=== PATIENT | male | born 1965 | race Caucasian/White ===

== ENCOUNTER 2021-08-02 20:16 | Emergency (ER) | payer OTHER ==
[2021-08-02 20:50] VITALS: BP 148/99; PULSE 86; RESP 18; TEMP 97.7
--- NOTE | 2021-08-02 22:08 | US ---
EXAMINATION TYPE: US extremity nonvascular ltd LT DATE OF EXAM: 08/02/2021 COMPARISON: NONE CLINICAL HISTORY: Left calf pain/injury. Left calf pain/injury. *No [facility] specialty, limited exam. Scanned patient's area of concern, left medial calf at mid level. Isoechoic area with hypoechoic periphery seen at patient's area of pain, ??normal tissue versus other . This area measures 0.5 x 0.6 x 0.5 cm IMPRESSION: Nonspecific soft tissue nodularity measuring up to 0.6 cm within the myofascial planes. This can be further evaluated with MRI of the lower extremity with IV contrast.
--- NOTE | 2021-08-02 23:39 | ED ---
Lower Extremity Injury HPI - General Chief Complaint: Extremity Injury, Lower Stated Complaint: IHS-L leg injury Time Seen by Provider: 08/02/21 23:18 Source: patient Mode of arrival: ambulatory Limitations: no limitations - History of Present Illness Initial Comments: 55-year-old male patient presents the emergency department today for evaluation of left calf pain. Patient states he was pushing a 700 pound pain at work when he developed pain in his left calf. States it is sharp in nature and worsens with walking. Denies swelling to the calf. Denies any skin color changes. Denies any knee pain. Denies numbness or tingling to the leg or foot. Denies taking anything for pain. Denies any other injuries or concerns. - Related Data Previous Rx's Medication Instructions Recorded Cyclobenzaprine [Flexeril] 10 mg PO TID #15 tab 08/02/21 Allergies Allergy/AdvReac Type Severity Reaction Status Date / Time No Known Allergies Allergy Verified 08/02/21 20:50 Review of Systems ROS Statement: Those systems with pertinent positive or pertinent negative responses have been documented in the HPI. ROS Other: All systems not noted in ROS Statement are negative. Past Medical History Past Medical History: No Reported History History of Any Multi-Drug Resistant Organisms: None Reported Past Surgical History: Orthopedic Surgery Additional Past Surgical History / Comment(s): Knee replacment bilateral. Past Psychological History: No Psychological Hx Reported Smoking Status: Current every day smoker Past Alcohol Use History: Occasional Past Drug Use History: None Reported General Exam Limitations: no limitations General appearance: alert, in no apparent distress, other (This is a well developed, well nourished adult male patient in no acute distress.) Respiratory exam: Present: normal lung sounds bilaterally. Absent: respiratory distress, wheezes, rales, rhonchi, stridor Cardiovascular Exam: Present: regular rate, normal rhythm, normal heart sounds. Absent: systolic murmur, diastolic murmur, rubs, gallop, clicks Extremities exam: Present: normal inspection, full ROM, tenderness (Left posterior calf), normal capillary refill, other (Skin to the left leg is pink, warm, and dry. Cap refill less than 3 seconds. Pedal and posttibial pulses 2+. There is left calf tenderness. Negative Doherty test.). Absent: pedal edema, joint swelling, calf tenderness Neurological exam: Present: alert, oriented X3, CN II-XII intact Psychiatric exam: Present: normal affect, normal mood Skin exam: Present: warm, dry, intact, normal color. Absent: rash Course Vital Signs 08/02/21 20:47 Temperature 97.7 F Pulse Rate 86 Respiratory 18 Rate Blood Pressure 148/99 O2 Sat by Pulse 96 Oximetry Medical Decision Making - Medical Decision Making 55-year-old male patient presents for evaluation of left calf pain after an injury at work. Physical examination did reveal tenderness over the calf. Skin appeared normal. Neurovascular status is intact. Ultrasound of the Was obtained and did show a nodularity in the myofascial planes. Unfortunately this ultrasound is not specialize for musculoskeletal exams. He did have a negative Doherty test. We discharged with orthopedics if his symptoms not improve over the next week. Given anti-inflammatory and muscle relaxer. Return parameters were discussed in detail. He verbalizes understanding and agrees with this plan. My attending is Dr. Ramsey. - Radiology Data Radiology results: report reviewed, image reviewed Ultrasound of the left calf is obtained. Report was reviewed in its entirety. Impression by Dr. Shaver shows nonspecific soft tissue nodularity measuring up to 0.6 cm within the myofascial planes. This can be further evaluated MRI of the lower extremity with contrast Disposition Clinical Impression: Strain of left calf muscle Narrative: Nodule left calf Disposition: HOME SELF-CARE Condition: Good Instructions (If sedation given, give patient instructions): Muscle Strain (ED) Additional Instructions: Take medications as directed. Continue tylenol and motrin/aleve for pain control. Apply ice to the 4 times daily at least 20 minutes at a time. Follow up with orthopedics as soon as possible. Return to the emergency department for any new, worsening, or concerning symptoms. Prescriptions: Cyclobenzaprine [Flexeril] 10 mg PO TID #15 tab Is patient prescribed a controlled substance at d/c from ED?: No Referrals: None,Stated [Primary Care Provider] - 1-2 days Time of Disposition: 23:39
== END 2021-08-02 23:50 | disposition home or self-care (01) ==
LOC: EC 20:16
DX: S86.912A Strain of unspecified muscle(s) and tendon(s) at lower leg level, left leg, initial encounter (principal); F17.200 Nicotine dependence, unspecified, uncomplicated; X50.0XXA Overexertion from strenuous movement or load, initial encounter; Y99.0 Civilian activity done for income or pay
CPT/HCPCS: 99283